=== PATIENT | female | born 1990 | race Two or more races ===

== ENCOUNTER → 2016-05-11 | Emergency (ER) | payer SELFPAY ==
[~2016-05-11] VITALS: Ht 157.5 cm; Wt 87.8 kg
[2016-05-11 18:27] VITALS: BP 144/77
[2016-05-11 18:40] LABS: HEMATOCRIT 42.3 % (36.0-46.0); MCH 26.4 PG (29.0-34.0); MCHC 32.4 G/DL (30.0-36.0); MCV 81.5 FL (83-99); MEAN PLAT.VOLUME 10.3 uM^3 (9.5-12.4); PLATELET COUNT 223 K/uL (156-360); RBC DIS.WIDTH-CV 14.1 % (11.8-14.6); RBC DIS.WIDTH-SD 41.5 % (39-53); RED BLOOD COUNT 5.19 M/uL (3.80-5.20); WHITE BLOOD COUNT 6.6 K/uL (4.1-10.2)
[2016-05-11 18:49] LABS: CHLORIDE 104 mEq/L (99-109); POTASSIUM 4.4 mEq/L (3.7-5.4); SODIUM 141 mEq/L (136-147)
[2016-05-11 18:51] LABS: GLUCOSE 101 mg/dL (70-99)
[2016-05-11 18:52] LABS: ANION GAP 10 MEQ/L (2-14)
[2016-05-11 18:53] LABS: TOTAL BILIRUBIN 0.4 mg/dL (0.0-1.0)
[2016-05-11 18:54] LABS: ALKALINE PHOSPHATASE 88 IU/L (3-129)
[2016-05-11 18:56] LABS: UREA NITROGEN (BUN) 12 mg/dL (9-23)
[2016-05-11 18:57] LABS: GFR ESTIMATE (CALCULATED) > 59 mL/min/
[2016-05-11 19:05] LABS: QUANTITATIVE HCG < 4.0 MIU/ML
== END | disposition left against medical advice (07) ==
LOC: EME 18:08
DX: R10.9 Unspecified abdominal pain (principal); R11.0 Nausea; Z53.21 Procedure and treatment not carried out due to patient leaving prior to being seen by health care provider
CPT/HCPCS: 80053; 81003; 84702; 85027